=== PATIENT | female | born 1965 | race Caucasian/White ===

== ENCOUNTER 2020-02-22 16:11 | Emergency (ER) | payer BC ==
[~2020-02-22] VITALS: Ht 162.6 cm; Wt 110.2 kg
[2020-02-22 16:52] VITALS: BP 148/78
[2020-02-22] MEDS ORDERED: cefTRIAXone SOD 1,000 MG VL IM ONE (17:45)
== END 2020-02-22 17:54 | disposition home or self-care (01) ==
LOC: ER 16:11
DX: N76.4 Abscess of vulva (principal); E11.9 Type 2 diabetes mellitus without complications
CPT/HCPCS: 96372; 99283; J0696

== ENCOUNTER 2022-07-14 14:39 | Emergency (ER) | payer BC ==
[~2022-07-14] VITALS: Ht 162.6 cm; Wt 91.1 kg
[2022-07-14 14:59] VITALS: BP 103/79
[2022-07-14] MEDS ORDERED: CEPH-510 PO (15:01)
[2022-07-14] MEDS ORDERED: IBUP800T27 PO (15:01)
== END 2022-07-14 15:18 | disposition home or self-care (01) ==
LOC: ER 14:42
DX: L60.0 Ingrowing nail (principal); E11.9 Type 2 diabetes mellitus without complications